=== PATIENT | male | born 1995 | race Caucasian/White ===

== ENCOUNTER 2017-04-25 18:49 | Emergency (ER) | payer SELFPAY ==
[~2017-04-25] VITALS: Ht 185.4 cm; Wt 89.6 kg
[~2017-04-25 18:49] MED LIST: AUGM875T PO; IBUP-232 PO
[2017-04-25 19:01] VITALS: BP 136/68; PULSE 71; RESP 18; TEMP 98.3; O2SAT 98
--- NOTE | 2017-04-25 20:17 | PD ---
HPI Chief Complaint: Oral / Dental Pain or Problem Time Seen by Provider: 20:17 Travel History International Travel<30 days: No Contact w/Intl Traveler<30days: No Traveled to known affect area: No History of Present Illness HPI This is a 21-year-old male here with right lower molar pain 3 days. Denies fever or chills. Reports mild facial swelling. Pain is aggravated by heat, cold, chewing. Symptom severity is moderate. No alleviating factors. 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) Tetanus Vaccination: < 5 Years Influenza Vaccination: No Past Surgical History Cholecystectomy: Yes Social History Alcohol Use: No Tobacco Use: Yes (1 PPD) Substance Use: No Allergies-Medications (Allergen,Severity, Reaction): Coded Allergies: No Known Allergies (Unverified Allergy, Unknown, 04/25/17) Reported Meds & Prescriptions Reported Meds & Active Scripts Active No Active Prescriptions or Reported Medications Review of Systems Except as stated in HPI: all other systems reviewed are Neg General / Constitutional: No: Fever HENT: Positive: Dental Difficulties Physical Exam Narrative GENERAL: Alert and well-appearing 21-year-old male SKIN: Warm and dry. HEAD: Normocephalic. EYES: No injection or drainage. Mouth: Right lower molar decayed with surrounding gum erythema and tenderness. No swelling of the floor the mouth. Uvula is midline. Airway is patent. NECK: Supple, trachea midline. No lymphadenopathy. CARDIOVASCULAR: Regular rate and rhythm RESPIRATORY: Breath sounds equal bilaterally. No accessory muscle use. Data Data Last Documented VS Vital Signs Date Time Temp Pulse Resp B/P (MAP) Pulse Ox O2 Delivery O2 Flow Rate FiO2 04/25/17 19:41 18 04/25/17 19:01 98.3 71 136/68 (90) 98 MDM Medical Decision Making Medical Screen Exam Complete: Yes Emergency Medical Condition: Yes Differential Diagnosis Dental abscess, dental caries, dentalgia Narrative Course 21-year-old male here with dental pain. He is nontoxic appearing. His airways patent. He'll be treated for dental infection. Diagnosis Primary Impression: Pain, dental Referrals: Primary Care Physician Additional Instructions: Medication as directed. Follow-up with the dentist. Scripts Ibuprofen (Ibuprofen) 800 Mg Tab 800 MG PO Q6HR Y for PAIN, #40 TAB 0 Refills Prov: Brigitte Yi 04/25/17 Penicillin V Potassium (Penicillin V Potassium) 500 Mg Tab 500 MG PO Q6H for Infection for 7 Days, #28 TAB 0 Refills Prov: Brigitte Yi 04/25/17 Disposition: 01 DISCHARGE HOME Condition: Stable Brigitte Yi Apr 25, 2017 20:17
[2017-04-25] MEDS ORDERED: IBUP1TAB7 PO (20:18)
[2017-04-25] MEDS ORDERED: PENI500T PO (20:18)
[2017-04-25] MEDS ORDERED: KETOROLAC TROMETHAMINE 60 MG/2 ML (IM) VIAL IM ONE (20:30)
== END 2017-04-25 20:34 | disposition home or self-care (01) ==
LOC: PHED 18:49 → PHEFT 20:34
DX: K08.89 Other specified disorders of teeth and supporting structures (principal); E11.9 Type 2 diabetes mellitus without complications; J45.909 Unspecified asthma, uncomplicated; F17.200 Nicotine dependence, unspecified, uncomplicated
CPT/HCPCS: 96372; 99283; J1885